=== PATIENT | female | born 1945 | race Caucasian/White ===

== ENCOUNTER 2019-11-07 12:24 | Emergency (ER) | payer MEDICARE, OTHER, SELFPAY ==
[2019-11-07 12:31] VITALS: BP 128/73; PULSE 65; RESP 18; TEMP 36.4; O2SAT 98
--- NOTE | 2019-11-07 12:35 | PC.NURSE ---
Addendum entered by Courtney Martinez R.N. 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 Original Note: Fell backwards playing pickle ball. Landed on buttocks, fell onto wrist and hit head. Denies headache, denies c spine tenderness. Pain and swelling noted to left wrist.
--- NOTE | 2019-11-07 12:38 | DI.RAD.S_ITS ---
PROCEDURE: XR WRIST LT MIN 3V INDICATIONS: glf TECHNIQUE: 4 views of the wrist were acquired. COMPARISON: [facility], CT, CT HEAD/BRAIN WO CON, 11/07/2019, 12:39. FINDINGS: Bones: There is a comminuted, impacted, intra-articular fracture of the distal radius, with dorsal angulation of the distal fracture fragments in relation to the radial shaft. There is an accompanying mildly displaced ulnar styloid fracture. No radiocarpal dislocation is seen. Age-appropriate bony degenerative changes are seen. Scaphoid view: No navicular fractures are seen. Soft tissues: No suspicious soft tissue calcifications. IMPRESSION: There is a comminuted, impacted, dorsally angulated fracture of the distal radius, with intra-articular involvement. There is a mildly displaced ulnar styloid fracture also seen. Dictated by: José Sierra M.D. on 11/07/2019 at 11:59 Approved by: José Sierra M.D. on 11/07/2019 at 12:00
--- NOTE | 2019-11-07 12:38 | DI.CT.S_ITS ---
PROCEDURE: CT HEAD/BRAIN WO CON INDICATIONS: hit head on pavement TECHNIQUE: Noncontrast 4.5 mm thick angled axial sections acquired from the foramen magnum to the vertex, with coronal and sagittal reformats. For radiation dose reduction, the following was used: automated exposure control, adjustment of mA and/or kV according to patient size. COMPARISON: [facility], CR, XR WRIST LT MIN 3V, 11/07/2019, 12:29. FINDINGS: Image quality: Streak artifact from metallic earrings can be seen. CSF spaces: Basal cisterns are patent. No extra-axial fluid collections. The ventricles are symmetric in size and shape. Brain: No intracranial bleeds or masses. There is cerebral volume loss for age, with resultant ventricular and sulcal prominence. There are periventricular and deep white matter chronic small vessel ischemic changes. There is intracranial internal carotid artery atherosclerosis. Skull and face: Calvarium and visualized facial bones appear intact, without suspicious lesions. Sinuses: Visualized sinuses and mastoids are clear. IMPRESSION: No acute intracranial hemorrhage is seen. No acute intracranial process is seen. Dictated by: José Sierra M.D. on 11/07/2019 at 11:58 Approved by: José Sierra M.D. on 11/07/2019 at 11:58
--- NOTE | 2019-11-07 12:47 | ED_ITS ---
HPI - Extremity Injury (Upper) <BRANDI Guajardo - Last Filed: 11/07/19 16:18> General Chief Complaint: Extremity Injury, Upper Stated Complaint: Poss sprained wrist Time Seen by Provider: 11/07/19 12:26 Source: patient Mode of arrival: Ambulatory Limitations: no limitations History of Present Illness HPI narrative: The patient is a 74-year-old female nonsmoker who denies pertinent medical history who presents with a chief complaint of left wrist pain. She has left wrist dominant. She states she was playing pickle ball, fell back, landed on her buttocks and then had a FOOSH injury of her left wrist. She states she reached out to try to stop herself from falling. She also states that she fell back and hit her head on the [employer] ball court, which is made of pavement. She denies any neck or back pain. She denies any difficulty breathing. She has taken 800 mg of ibuprofen, applied ice and wrapped with an Sánchez wrap. She presents with a ring on her left ring finger, which was removed during triage. She denies any chest pain shortness of breath or nausea vomiting. Related Data Home Medications Medication Instructions Recorded Confirmed multivitamin 1 tab PO DAILY 11/11/18 11/11/18 Previous Rx's Medication Instructions Recorded hydrocodone-acetaminophen [[place]] 1 tab PO Q4-6H PRN #12 tab 11/07/19 Allergies Allergy/AdvReac Type Severity Reaction Status Date / Time No Known Drug Allergies Allergy Unverified 11/11/18 09:27 Review of Systems <BRANDI Guajardo - Last Filed: 11/07/19 16:18> Review of Systems Narrative: GENERAL: Denies chills, fatigue, malaise, fever, sweats. HEENT: Denies sinus pain, ear pain, sore throat, difficulty swallowing, dizziness. RESPIRATORY: Denies dyspnea, cough, wheezing, hemoptysis, sputum. CARDIOVASCULAR: Denies chest pain, palpitations, orthopnea, edema, GASTROINTESTINAL: Denies nausea, vomiting, abdominal pain, diarrhea, constipation, melena. : Denies dysuria, frequency, incontinence, hematuria, urinary retention. MUSCULOSKELETAL: See HPI SKIN: Denies rash, skin lesions, or other NEUROLOGIC: See HPI PSYCHIATRIC: No concerning psychosocial issues. 12 point review of systems is negative except for those stated above Patient History <BRANDI Guajardo - Last Filed: 11/07/19 16:18> Medical History History of chicken pox (Acute) History of right breast cancer (Acute) Measles (Acute) Mumps (Acute) Osteopenia (Acute) Thyroid nodule (Acute) Surgical History H/O partial thyroidectomy (Acute) Family History Father Heart attack Mother Hypertension Hyperlipidemia Social History marital status: household members: spouse pets and animals: No education level: college occupational status: other travel history: other leisure activities: sports, reading and other seatbelt use: always water heater temp set < 120 deg: Yes working smoke detector in home: Yes fire extinguisher in home: Yes carbon monox detector in home: Yes firearms in home: Yes firearms unloaded and locked: Yes do you feel safe at home: Yes Smoking Status: Never smoker second hand exposure: No alcohol intake: current (wine, cocktail and beer occasionally.) substance use type: does not use during the past year weight has: remained stable well-balanced diet: daily or most days daily servings fruits/ve or more times/day caffeine: Yes (1-2 drinks per day, rare on soda/pop) eating out: 1-3 times/week Type(s) of exercise: walking and other frequency: 3-4 times per week duration: 30-45 minutes/day additional social history: Pickle ball, golf, personal trampoline lymphatic system. Smoking Status: Never smoker alcohol intake frequency: 0-2 drinks per day Substance Use Type: does not use Exam <BRANDI Guajardo - Last Filed: 11/07/19 16:18> Narrative Exam Narrative: GENERAL: Elderly female sitting on stretcher in no acute distress, left wrist in Sánchez wrap. HEAD: Atraumatic. Normocephalic. No temporal or scalp tenderness. EYES: Pupils equal round and reactive. Extraocular motions intact. No scleral icterus. No injection or drainage. ENT: Nose without bleeding, purulent drainage or septal hematoma. Wearing a mask. . Airway patent. NECK: Trachea midline. No JVD or lymphadenopathy. Supple, nontender, no meningeal signs. CARDIOVASCULAR: Regular rate and rhythm RESPIRATORY: Clear to auscultation. Breath sounds equal bilaterally. No wheezes, rales, or rhonchi. No cough. No increased respiratory effort. No accessory muscle use. EXTREMITIES: Pain to palpation left wrist, swelling noted on dorsum with angulation noted. Decreased range of motion all simmons. Positive left radial pulse. Capillary refill less than 2 seconds all fingers left wrist. BACK: Nontender without deformity or crepitance. No flank tenderness. NEURO: AOx3. Interactive. Age appropriate. Clear speech. No gross cranial nerve deficit. SKIN: No rash or erythema on visible skin. Slight swelling noted on dorsum of left wrist. No laceration noted to posterior head. Initial Vital Signs Initial Vital Signs: Vital Signs Temperature 97.6 F 11/07/19 12:31 Pulse Rate 65 11/07/19 12:31 Respiratory Rate 18 11/07/19 12:31 Blood Pressure 128/73 11/07/19 12:31 Pulse Oximetry 98 11/07/19 12:31 <Dewey Yates DO - Last Filed: 11/07/19 17:03> Initial Vital Signs Initial Vital Signs: Vital Signs Temperature 97.6 F 11/07/19 12:31 Pulse Rate 65 11/07/19 12:31 Respiratory Rate 18 11/07/19 12:31 Blood Pressure 128/73 11/07/19 12:31 Pulse Oximetry 98 11/07/19 12:31 Procedures <BRANDI Guajardo - Last Filed: 11/07/19 16:18> Orthopedic Splinting/Casting Injury #1: Side: left Upper Extremity Injury Location: wrist Upper Extremity Immobilizer: sling/shoulder immobilizer, sugar tong splint and Sánchez wrap Post splinting neuro exam: intact Post splinting vascular exam: intact Placed by: Nursing (With provider) <Dewey Yates DO - Last Filed: 11/07/19 17:03> Orthopedic Fracture Reduction Fracture #1: Time Out Performed: Yes Side: left Fracture Reduction Location: radius and ulna Analgesia: procedural sedation Technique: direct manipulation and traction/counter-traction Post Reduction X-rays Demonstrate: acceptable reduction Post-reduction neuro exam: intact Post-reduction vascular exam: intact Splint Applied: Yes Patient Tolerated Procedure: Well Procedural Sedation Consent signed: Yes Time out performed: Yes Indication: fracture/dislocation reduction ASA Class: II Mallampati Airway Classification: Class II Preparation: monitoring tech applied, pulse oximeter, capnometry used, supplemental O2 applied, suction/airway equipment at bedside and IV secured IV Propofol dose (mg): 70 Intraservice time/total sedation time (min): 10 ED Sedation Level: Moderate (Concious) Patient Tolerated Procedure: Well Complications: none Scores <BRANDI Guajardo - Last Filed: 11/07/19 16:18> GCS [place] coma scale eye opening: Spontaneous [place] coma scale verbal response: Orientated [place] coma scale motor response: Obey commands [place] coma scale total score: 15 Course <NIKKI Guajardo - Last Filed: 11/07/19 16:18> Orders Ordered: ED Orders 11/07/19 12:38 CT head/brain wo con Stat XR wrist LT min 3V Stat 11/07/19 13:44 XR wrist LT 2V Stat Discontinued Medications Sodium Chloride (Normal Saline 0.9%) 1,000 mls @ 1,000 mls/hr IV BOLUS ONE Stop: 11/07/19 14:10 Last Infusion: 11/07/19 14:27 Dose: 1,000 mls/hr Documented by: Admin: 11/07/19 13:52 Dose: 1,000 mls/hr Documented by: CLAUDIA Ondansetron HCl (Zofran) 4 mg IV NOW ONE Stop: 11/07/19 13:12 Last Admin: 11/07/19 13:51 Dose: 4 mg Documented by: CLAUDIA Propofol (Diprivan) 70 mg 1 mg/kg (70 mg) IV NOW ONE Stop: 11/07/19 13:12 Last Admin: 11/07/19 13:51 Dose: 70 mg Documented by: CLAUDIA Vital Signs Vital signs: Vital Signs - 8 hr 11/07/19 12:31 11/07/19 13:39 11/07/19 13:45 Temperature 97.6 F Pulse Rate 65 65 67 Respiratory Rate 18 12 10 L Blood Pressure 128/73 144/70 H Blood Pressure [Right Arm] 159/74 H Pulse Oximetry 98 100 90 L 11/07/19 14:01 11/07/19 14:02 11/07/19 14:28 Temperature Pulse Rate 74 75 71 Respiratory Rate 18 12 12 Blood Pressure 129/70 135/72 Blood Pressure [Right Arm] Pulse Oximetry 93 99 <Dewey Yates DO - Last Filed: 11/07/19 17:03> Orders Ordered: ED Orders 11/07/19 12:38 CT head/brain wo con Stat XR wrist LT min 3V Stat 11/07/19 13:44 XR wrist LT 2V Stat Discontinued Medications Sodium Chloride (Normal Saline 0.9%) 1,000 mls @ 1,000 mls/hr IV BOLUS ONE Stop: 11/07/19 14:10 Last Infusion: 11/07/19 14:27 Dose: 1,000 mls/hr Documented by: Admin: 11/07/19 13:52 Dose: 1,000 mls/hr Documented by: CLAUIDA Ondansetron HCl (Zofran) 4 mg IV NOW ONE Stop: 11/07/19 13:12 Last Admin: 11/07/19 13:51 Dose: 4 mg Documented by: CLAUDIA Propofol (Diprivan) 70 mg 1 mg/kg (70 mg) IV NOW ONE Stop: 11/07/19 13:12 Last Admin: 11/07/19 13:51 Dose: 70 mg Documented by: CLAUDIA Vital Signs Vital signs: Vital Signs - 8 hr 11/07/19 12:31 11/07/19 13:39 11/07/19 13:45 Temperature 97.6 F Pulse Rate 65 65 67 Respiratory Rate 18 12 10 L Blood Pressure 128/73 144/70 H Blood Pressure [Right Arm] 159/74 H Pulse Oximetry 98 100 90 L 11/07/19 14:01 11/07/19 14:02 11/07/19 14:28 Temperature Pulse Rate 74 75 71 Respiratory Rate 18 12 12 Blood Pressure 129/70 135/72 Blood Pressure [Right Arm] Pulse Oximetry 93 99 MDM - Extremity Injury (Upper) <JUANIS Guajardo-MAURI - Last Filed: 11/07/19 16:18> Differential Diagnosis Differential diagnosis: Likely sprain and strain of wrist, fracture of wrist, Colles' fracture and fracture of hand Lab Data Labs: Point of Care Testing Test Results Not applicable Imaging Data Extremity x-ray #1: Radiologist's Impression: [address] [place] [id number] XRay Report Signed Patient: Dorie JulienraMR#: [id number] : 8Acct:[id number] Age/Sex: 74 / FDate of Service: 11/07/19 Loc: ED Accession Number: [id number] Procedure: XR wrist LT min 3V Ordering Provider: Anni May PROCEDURE: XR WRIST LT MIN 3V INDICATIONS: glf TECHNIQUE: 4 views of the wrist were acquired. COMPARISON: [facility], CT, CT HEAD/BRAIN WO CON, 11/07/2019, 12:39. FINDINGS: Bones: There is a comminuted, impacted, intra-articular fracture of the distal radius, with dorsal angulation of the distal fracture fragments in relation to the radial shaft. There is an accompanying mildly displaced ulnar styloid fracture. No radiocarpal dislocation is seen. Age-appropriate bony degenerative changes are seen. Scaphoid view: No navicular fractures are seen. Soft tissues: No suspicious soft tissue calcifications. IMPRESSION: There is a comminuted, impacted, dorsally angulated fracture of the distal radius, with intra-articular involvement. There is a mildly displaced ulnar styloid fracture also seen. Dictated by: José Sierra M.D. on 11/07/2019 at 11:59 Approved by: José Sierra M.D. on 11/07/2019 at 12:00 CT scan - head: Radiologist's Impression: [address] [place] [id number] XRay Report Signed Patient: Dorie JulienraMR#: [id number] : 8Acct:[id number] Age/Sex: 74 / FDate of Service: 11/07/19 Loc: ED Accession Number: [id number] Procedure: XR wrist LT min 3V Ordering Provider: Anni May PROCEDURE: XR WRIST LT MIN 3V INDICATIONS: glf TECHNIQUE: 4 views of the wrist were acquired. COMPARISON: [facility], CT, CT HEAD/BRAIN WO CON, 11/07/2019, 12:39. FINDINGS: Bones: There is a comminuted, impacted, intra-articular fracture of the distal radius, with dorsal angulation of the distal fracture fragments in relation to the radial shaft. There is an accompanying mildly displaced ulnar styloid fracture. No radiocarpal dislocation is seen. Age-appropriate bony degenerative changes are seen. Scaphoid view: No navicular fractures are seen. Soft tissues: No suspicious soft tissue calcifications. IMPRESSION: There is a comminuted, impacted, dorsally angulated fracture of the distal radius, with intra-articular involvement. There is a mildly displaced ulnar styloid fracture also seen. Dictated by: José Sierra M.D. on 11/07/2019 at 11:59 Approved by: José Sierra M.D. on 11/07/2019 at 12:00 Extremity x-ray #2: Radiologist's Impression: [address] [place] [address] XRay Report Signed Patient: Dorie JulienraMR#: [id number] : 8Acct:[id number] Age/Sex: 74 / FDate of Service: 11/07/19 Loc: ED Accession Number: [id number] Procedure: XR wrist LT 2V Ordering Provider: Dewey Yates D.O. PROCEDURE: XR WRIST LT 2V INDICATIONS: post reduction TECHNIQUE: 2 views of the wrist were acquired. COMPARISON: [facility], , XR WRIST LT MIN 3V, 11/07/2019, 12:29. FINDINGS: Bones: On this post casting view, there is slightly improved alignment of the patient's moderately displaced, comminuted distal radial fracture. There is intra- articular involvement. There is a mildly displaced ulnar styloid fracture seen. The overlying casting material limits evaluation of fine detail. Degenerative changes are seen throughout, which are most prominent involving the 1st carpometacarpal joint. Milder degenerative changes are seen elsewhere. Soft tissues: No suspicious soft tissue calcifications. IMPRESSION: Slightly improved anatomic alignment on this post casting view. Dictated by: José Sierra M.D. on 11/07/2019 at 13:11 Approved by: José Sierra M.D. on 11/07/2019 at 13:11 [facility] Narrative Medical decision making narrative: The patient is a 74-year-old female who presents after ground level fall with a chief complaint of left wrist pain and hitting her head. Given her age of over 67, hitting her head on pavement, head CT was obtained and came back negative for any acute findings. The patient believed that she had a wrist sprain, however her x-ray shows a comminuted angulated fracture. However she is neurovascularly intact. Thus she received sedation and reduction with Dr. Yates. Patient is placed in a sugar-tong, remained neurovascularly intact, x-ray shows slight improvement. I spoke with Dr. Banuelos regarding follow-up. Patient tolerated sedation very well. Patient is to call orthopedics on Friday to help arrange follow-up. Discussed at length coming back to ER for any acute concerns including decreased circulation of fingers. Encouraged rest ice compression elevation, prescription of [place] given. Encouraged follow-up with primary care provider as well. Patient has no questions or concerns upon discharge and states understanding return precautions as well as follow-up care. <Dewey Yates, DO - Last Filed: 11/07/19 17:03> Lab Data Labs: Point of Care Testing Test Results Not applicable Discharge Plan Departure Patient Disposition: Home Clinical Impression: Fall from ground level Fracture of wrist Qualifiers: Encounter type: initial encounter Fracture type: closed Laterality: left Q ualified Code(s): S62.102A - Fracture of unspecified carpal bone, left wrist, initial encounter for closed fracture Discharge Date/Time: 11/07/19 14:51 Instructions: How to Use a Sling, DI for Wrist Fracture, How To Perform RICE (Rest, Ice, Compress, Elevate), How to Take Care of Your Splint, DI for Moderate Sedation Activity Restrictions/Additional Instructions: Thank you for trusting us with your care today. I am sorry that you are injured and wish you a speedy recovery. Unfortunately your wrist is more than sprained. We have improved alignment and placed in a splint. I spoke with Dr. Banuelos from [facility] who would like you to call the clinic on Friday to help arrange follow-up. I also suggest follow-up with primary care provider. Please use rest ice compression elevation. Please place ice on top of the splint. Please come back to the emergency department for any acute concerns such as decreased circulation to your fingers. I have included a handout on how to take care of your splint. Please do not get it wet. I sent a pain medication prescription to [facility]. I have given you a prescription of a narcotic for pain. Be aware that this can be constipating and sedating. I encouraged taking with a stool softener, pushing fluids and fiber. Do not take and drive, operate heavy machinery, etc. Do not combine it with any other sedating substances such as alcohol. The combination of narcotics and alcohol and/or other sedatives can be lethal. Prescriptions: New hydrocodone-acetaminophen [[place]] 5-325 mg tablet 1 tab PO Q4-6H PRN (Reason: pain) Qty: 12 RF: 0 No Action multivitamin Tablet 1 tab PO DAILY RF: 0 Referrals: [facility] [Provider Group] Matilda Hi ARNP [Primary Care Provider] - Jose Banuelos MD [Physician] - <Dewey Yates DO - Last Filed: 11/07/19 17:03> [facility] Att[facility]: I was immediately available in the department for consultation. This docume ntation has been reviewed and I agree with assessment and plan. Supervised by Dewey Yates DO
[2019-11-07 13:39] VITALS: BP 159/74; PULSE 65; RESP 12; O2SAT 100
--- NOTE | 2019-11-07 13:44 | DI.RAD.S_ITS ---
PROCEDURE: XR WRIST LT 2V INDICATIONS: post reduction TECHNIQUE: 2 views of the wrist were acquired. COMPARISON: [facility], CR, XR WRIST LT MIN 3V, 11/07/2019, 12:29. FINDINGS: Bones: On this post casting view, there is slightly improved alignment of the patient's moderately displaced, comminuted distal radial fracture. There is intra-articular involvement. There is a mildly displaced ulnar styloid fracture seen. The overlying casting material limits evaluation of fine detail. Degenerative changes are seen throughout, which are most prominent involving the 1st carpometacarpal joint. Milder degenerative changes are seen elsewhere. Soft tissues: No suspicious soft tissue calcifications. IMPRESSION: Slightly improved anatomic alignment on this post casting view. Dictated by: José Sierra M.D. on 11/07/2019 at 13:11 Approved by: José Sierra M.D. on 11/07/2019 at 13:11
[2019-11-07 13:45] VITALS: BP 144/70; PULSE 67; RESP 10; O2SAT 90
[2019-11-07] MEDS: ONDANSETRON 4 MG/2 ML INJ IV (13:51)
[2019-11-07] MEDS: propofoL 200 MG/20 ML VIAL 70 MG IV (13:51)
[2019-11-07] MEDS: SODIUM CHLORIDE 0.9% 1,000 ML 1000 ML IV (13:52)
[2019-11-07 14:01] VITALS: PULSE 74; RESP 18; O2SAT 97
[2019-11-07 14:02] VITALS: BP 129/70; PULSE 75; RESP 12; O2SAT 93
[2019-11-07 14:28] VITALS: BP 135/72; PULSE 71; RESP 12; O2SAT 99
== END 2019-11-07 14:51 | disposition home or self-care (01) ==
PROVIDERS: Emergency Provider Nurse Practitioner Family; PCP Nurse Practitioner
DX: S62.102A Fracture of unspecified carpal bone, left wrist, initial encounter for closed fracture (principal); S09.90XA Unspecified injury of head, initial encounter; W18.30XA Fall on same level, unspecified, initial encounter
CPT/HCPCS: 25605; 29125; 70450; 73100; 73110; 94770; 96361; 96374; 99152; 99285; J2405; J2704

== ENCOUNTER → 2020-03-16 11:06 | Outpatient (CLI) | payer MEDICARE, OTHER, SELFPAY ==
[2020-03-16] MEDS: COVID-19 VACC #1, MRNA(MOD) 100 MCG/0.5 ML VIAL IM (11:10)
== END ==
PROVIDERS: PCP Nurse Practitioner; Visit Provider Internal Medicine
DX: Z23 Encounter for immunization (principal)
CPT/HCPCS: 0011A; 91301

== ENCOUNTER → 2020-04-11 08:41 | Outpatient (CLI) | payer MEDICARE, OTHER, SELFPAY ==
[2020-04-11] MEDS: COVID-19 VACC #2, MRNA(MOD) 100 MCG/0.5 ML VIAL IM (08:47)
== END ==
PROVIDERS: PCP Nurse Practitioner; Visit Provider Internal Medicine
DX: Z23 Encounter for immunization (principal)
CPT/HCPCS: 0012A; 91301

== ENCOUNTER → 2020-10-13 07:11 | Outpatient (CLI) | payer MEDICARE, OTHER, SELFPAY ==
--- NOTE | 2020-10-13 07:13 | DI.US.S_ITS ---
PROCEDURE: US THYROID INDICATIONS: GOITER; HISTORY RIGHT THYROIDECTOMY TECHNIQUE: Real-time scanning was performed of the thyroid gland, with image documentation. Color Doppler was also utilized. COMPARISON: None. FINDINGS: Right: Removed. No abnormal soft tissue can be seen within the right thyroid bed. Left: Thyroid lobe measures 8.4 x 4.3 x 3.8 cm, and is diffusely irregular. Isthmus: 8 mm thick. Nodule number: 1 Location: Left mid to inferior thyroid Size: 3.6 x 2.4 x 3.5 cm. Composition: Predominantly solid Echogenicity: Isoechoic Shape: wider than tall. Margins: Smooth Echogenic foci: Larger calcifications are seen. Total points: 4 ACR TI-RADS category: 4 IMPRESSION: Diffusely irregular left thyroid lobe, with a 3.6 cm mass seen. This mass meets the published criteria to recommend a biopsy. Prior right hemithyroidectomy. ACR TI-RADS definitions and recommendations: TI-RADS 1 (benign): 0 points. FNA not needed. TI-RADS 2 (not suspicious): 2 points. FNA not needed. TI-RADS 3 (mildly suspicious): 3 points. * FNA if 2.5 cm or larger, follow up if 1.5 cm or larger (at 1, 3, and 5 years). TI-RADS 4 (moderately suspicious): 4-6 points. * FNA if 1.5 cm or larger, follow up if 1 cm or larger (at 1, 2, 3, and 5 years). TI-RADS 5 (highly suspicious): 7 points or more. * FNA if 1 cm or larger, follow up if 0.5 cm or larger (every year for 5 years). Dictated by: José Sierra M.D. on 10/13/2020 at 10:20 Approved by: José Sierra M.D. on 10/13/2020 at 10:23
[2020-10-13 08:22] LABS: Alanine Aminotransferase 23 IU/L (<35); Albumin Globulin Ratio 1.4 (1.0-2.8); Alkaline Phosphatase 51 U/L (38-126); Aspartate Aminotransferase 24 IU/L (14-36); BUN Creatinine Ratio 21.4 (6-22); Bilirubin Total 0.6 mg/dL (0.2-1.3); Blood Urea Nitrogen 21 mg/dL (7-17); Calcium 9.9 mg/dL (8.4-10.2); Carbon Dioxide 28 mmol/L (22-32); Chloride 103 mmol/L (98-107); Cholesterol 218 mg/dL (140-199); Estimated Glomerular Filt Rate 55.6 mL/min (>60); Globulin 2.8 g/dL (1.7-4.1); Glucose 89 mg/dL (80-110); HDL Cholesterol 91 mg/dL (40-60); HEMOLYSIS < 15 (0-50); LDL Cholesterol Calculated 110 mg/dL (<100); Potassium 4.6 mmol/L (3.4-5.1); Sodium 136 mmol/L (137-145); Total Protein 6.8 g/dL (6.3-8.2); Triglycerides 84 mg/dL (35-150)
[2020-10-13 08:39] LABS: Free T4, Direct Thyroxine 1.05 ng/dL (0.78-2.19)
[2020-10-13 08:53] LABS: Thyroid Stimulating Hormone 0.448 uIU/mL (0.47-4.68)
== END ==
PROVIDERS: PCP Nurse Practitioner; Referring Provider Nurse Practitioner; Visit Provider Nurse Practitioner
DX: E89.0 Postprocedural hypothyroidism (principal); E04.1 Nontoxic single thyroid nodule; E07.9 Disorder of thyroid, unspecified; E78.5 Hyperlipidemia, unspecified; R03.0 Elevated blood-pressure reading, without diagnosis of hypertension; Z13.6 Encounter for screening for cardiovascular disorders; Z86.39 Personal history of other endocrine, nutritional and metabolic disease
CPT/HCPCS: 36415; 76536; 80053; 80061; 84439; 84443; 84481

== ENCOUNTER → 2020-11-01 10:09 | Outpatient (CLI) | payer MEDICARE, OTHER, SELFPAY ==
--- NOTE | 2020-11-01 | PATH_ITS ---
Note [facility] Accession Number: [id number] TESTS RESULT FLAG UNITS REF RANGE LAB Clinician Provided Cytology Information No. of containers..02 Previously Prepared Cytology Slide 35 Unknown Storage/container code(s) Source: LEFT THYROID NODULE Clinician ICD10: E07.89 [place] DIAGNOSIS: LEFT THYROID NODULE NEGATIVE FOR MALIGNANT CELLS. BETHESDA CATEGORY II. SPECIMEN CONSISTS OF BENIGN FOLLICULAR CELLS, MACROPHAGES, AND COLLOID. THIS PATTERN IS CONSISTENT WITH A BENIGN FOLLICULAR NODULE. Pathologist ICD10: E04.1 Clinical history: Right: Removed. No abnormal soft tissue can be seen within the right thyroid bed. Left: Thyroid lobe measures 8.4 x 43 x 3.8 cm, and is diffusely irregular. Isthmus: 8 mm thick. IMPRESSION: Diffusely irregular left thyroid lobe, with a 3.6 cm mass seen. This mass meets the published criteria to recommend a biopsy. Signed out by: Radha Fields MD, Pathologist NPI- [id number] Performed by: Diana Stevenson, [place] Compliance Coordinator ([facility]) Gross description: 30 CC, RED, CLEAR RECIEVED: IN CYTOLYT WITH 6 ALCOHOL FIXED AND 6 QUICK STAINED SLIDES ALSO 1 RNA VIAL WAS RECEIVED FOR FURTHER TESTING. /VDU 11/02/2020 0724 Local FLAG LEGEND: L-Low Normal,H-High Normal,LL-Alert Low,HH-Alert High <-Panic Low,>-Panic High,A-Abnormal,AA-Critical Abnormal Performed at: 01 =Z [facility] [address] [place] [address] [address], [place] [address] Jay Gann MD, Performed at: 01 [facility] [address] [place] [address] [address], [place], [place] [id number] MD Jay Gann MD Phone: [phone]
--- NOTE | 2020-11-01 | DI.US.S_ITS ---
PROCEDURE: US FINE NEEDLE ASPIRATION INDICATIONS: Other specified disorders of thyroid TECHNIQUE: The indications, alternatives, benefits, risks, and complications of the procedure were explained to the patient. Written informed consent was obtained and placed in the chart. The thyroid region was examined sonographically and a site was chosen for ultrasound guided percutaneous sampling. The skin was prepared and draped in the usual fashion, and anesthetized with 1% lidocaine infiltrated from the skin down to the thyroid gland. Multiple passes were then performed, with contents emptied into an appropriate pathology specimen container. A bandage was applied to the area of access at completion of the study. COMPARISON: None. FINDINGS: Location(s) of lesion(s) sampled: Left lobe [place]: 22 and 25 gauge hypodermic needles. Number of passes: 6 Medications: 1% lidocaine for local anaesthesia. Complications: None. IMPRESSION: Successful ultrasound-guided thyroid nodule fine needle aspiration, with cytology results pending. Please see chart below for management recommendations based on cytology results. [facility] ReportingRecommendationsNon-diagnostic* Repeat US-guided FNA, with on-site cytology evaluation if possible. * Repeated non-diagnostic nodules without high suspicion US features: close observation vs surgical consult. * Consider surgery if nodule has high suspicion US features, grows >20% in 2 dimensions on followup, or patient has clinical risk factors for malignancy. Benign* If nodule has high suspicion US features: repeat US and FNA within 12 months. * If nodule has low to intermediate suspicion US features: repeat US at 12-24 months. If nodule grows (20% increase in at least 2 dimensions, with minimal increase of 2 mm or >50% change in volume), or development of new suspicious US features, then repeat FNA or continue followup. * If nodule has very low suspicion US features: followup US at >24 months. Atypia of undetermined significance, follicular lesion of undetermined significanceRepeat FNA, molecular testing, followup US, or surgical consult.Follicular neoplasm, suspicious for follicular neoplasmSurgical consult; also consider molecular testing. Suspicious for malignancySurgical consult.MalignantSurgical consult. Dictated by: Todd Abreu M.D. on 11/02/2020 at 9:08 Approved by: Todd Abreu M.D. on 11/02/2020 at 9:09
== END ==
PROVIDERS: PCP Nurse Practitioner; Referring Provider Nurse Practitioner; Visit Provider Nurse Practitioner
DX: E07.89 Other specified disorders of thyroid (principal)
CPT/HCPCS: 10005

== ENCOUNTER → 2022-01-29 11:14 | Outpatient (CLI) | payer MEDICARE, OTHER, SELFPAY ==
--- NOTE | 2022-01-29 11:16 | DI.US.S_ITS ---
PROCEDURE: US THYROID INDICATIONS: follow up thyroid imaging for abn US previously. TECHNIQUE: Real-time scanning was performed of the thyroid gland, with image documentation. COMPARISON: [facility], US, US THYROID, 10/13/2020, 7:29. FINDINGS: Right: Right thyroid lobe is surgically absent. Left: Thyroid lobe measures 9.3 x 4.4 x 4.2 cm, and is heterogeneous in echotexture. This was previously measured at 8.4 x 3.8 x 4.3 cm in size. Isthmus: 4.9 mm thick, previously 8.8 mm in thickness. Nodule number: 1 Location: Midpole left thyroid lobe Size: 3.8 x 3.7 x 2.7 cm, previously 3.6 x 2.4 x 3.5 cm. Composition: Predominantly solid Echogenicity: Isoechoic Shape: Wider than tall Margins: Lobulated Echogenic foci: Macro calcifications are seen. Total points: 4 ACR TI-RADS category: Moderately suspicious Nodule number: 2 Location: Upper pole left thyroid lobe Size: 1.8 x 1.7 x 0.9 cm. New since previous study. Composition: Predominantly solid Echogenicity: Hypoechoic Shape: Wider than tall Margins: Mildly lobulated Echogenic foci: Punctate calcifications are seen. Total points: 6 ACR TI-RADS category: Moderately suspicious IMPRESSION: 1. Previously noted midpole left thyroid lobe moderately suspicious nodule is stable in size and appearance. Please correlate with previous FNA finding. 2. Interval development of a new moderately suspicious nodule in upper pole left thyroid lobe consider fine-needle aspiration for further evaluation. ACR TI-RADS definitions and recommendations: TI-RADS 1 (benign): 0 points. FNA not needed. TI-RADS 2 (not suspicious): 2 points. FNA not needed. TI-RADS 3 (mildly suspicious): 3 points. * FNA if 2.5 cm or larger, follow up if 1.5 cm or larger (at 1, 3, and 5 years). TI-RADS 4 (moderately suspicious): 4-6 points. * FNA if 1.5 cm or larger, follow up if 1 cm or larger (at 1, 2, 3, and 5 years). TI-RADS 5 (highly suspicious): 7 points or more. * FNA if 1 cm or larger, follow up if 0.5 cm or larger (every year for 5 years). Dictated by: Saeid Browning M.D. on 01/29/2022 at 17:05 Approved by: Saeid Browning M.D. on 01/29/2022 at 17:08
== END ==
PROVIDERS: PCP Nurse Practitioner; Referring Provider Nurse Practitioner; Visit Provider Nurse Practitioner
DX: E04.2 Nontoxic multinodular goiter
CPT/HCPCS: 76536

== ENCOUNTER → 2022-09-10 07:17 | Outpatient (CLI) | payer MEDICARE, OTHER, SELFPAY ==
[2022-09-10 08:00] LABS: Alanine Aminotransferase 26 IU/L (<35); Albumin 3.8 g/dL (3.5-5.0); Albumin Globulin Ratio 1.3 (1.0-2.8); Alkaline Phosphatase 51 U/L (38-126); Aspartate Aminotransferase 26 IU/L (14-36); BUN Creatinine Ratio 26.7 (6-22); Bilirubin Total 0.4 mg/dL (0.2-1.3); Blood Urea Nitrogen 20 mg/dL (7-17); Calcium 9.2 mg/dL (8.4-10.2); Carbon Dioxide 30 mmol/L (22-32); Chloride 104 mmol/L (98-107); Cholesterol 233 mg/dL (140-199); Estimated Glomerular Filt Rate > 60 mL/min (>60); Globulin 2.9 g/dL (1.7-4.1); Glucose 93 mg/dL (80-110); HDL Cholesterol 92 mg/dL (40-60); HEMOLYSIS < 15 (0-50); LDL Cholesterol Calculated 130 mg/dL (<100); Potassium 4.1 mmol/L (3.4-5.1); Sodium 138 mmol/L (137-145); Total Protein 6.7 g/dL (6.3-8.2); Triglycerides 54 mg/dL (35-150)
[2022-09-10 08:12] LABS: Free T3, Triiodothyronine Free 3.69 pg/mL (2.77-5.27); Free T4, Direct Thyroxine 1.03 ng/dL (0.78-2.19)
[2022-09-10 08:26] LABS: Thyroid Stimulating Hormone 0.634 uIU/mL (0.47-4.68)
[2022-09-10 08:46] LABS: Hep C Virus Ab w/Reflex Quant NEGATIVE s/c (NEGATIVE)
== END ==
PROVIDERS: PCP Nurse Practitioner; Referring Provider Nurse Practitioner; Visit Provider Nurse Practitioner
DX: I10 Essential (primary) hypertension (principal); E07.89 Other specified disorders of thyroid; M85.80 Other specified disorders of bone density and structure, unspecified site; R03.0 Elevated blood-pressure reading, without diagnosis of hypertension; Z86.39 Personal history of other endocrine, nutritional and metabolic disease; Z11.59 Encounter for screening for other viral diseases
CPT/HCPCS: 36415; 80053; 80061; 84439; 84443; 84481; 86803

== ENCOUNTER 2023-01-23 08:19 | Day surgery (SDC) | payer MEDICARE, OTHER, SELFPAY ==
[2023-01-23] MEDS: LACTATED RINGERS 1,000 ML 42 ML IV (08:29)
[2023-01-23 08:35] VITALS: BMI 22.9
[2023-01-23 08:41] VITALS: BP 149/81; PULSE 73; RESP 20; TEMP 36.4; O2SAT 100
--- NOTE | 2023-01-23 09:13 | PM.HP.1 ---
History of Present Illness History of Present Illness Date Patient Seen: 01/23/23 Time Patient Seen: 09:13 Chief complaint: Screening Colonoscopy w/poss bx Narrative: Teri is a 77-year-old woman who is here for colonoscopy. She is had to in the past and she thinks maybe one polyp was removed last time. She has had breast cancer surgery of her right breast. No known family history of colon cancer. [facility] Medical History (Updated 01/23/23 @ 09:34 by Lanre Galvan MD) Elevated blood pressure reading in office with diagnosis of hypertension History of hyperlipidemia Tinea unguium Diarrhea Mumps Measles History of chicken pox Osteopenia Thyroid nodule History of right breast cancer Surgical History H/O partial thyroidectomy Family History Father Heart attack Mother Hypertension Hyperlipidemia Social History (Reviewed 11/07/19 @ 14:37 by Anni May [facility]) marital status: household members: spouse pets and animals: No education level: college occupational status: other travel history: other leisure activities: sports, reading and other seatbelt use: always water heater temp set < 120 deg: Yes working smoke detector in home: Yes fire extinguisher in home: Yes carbon monox detector in home: Yes firearms in home: Yes firearms unloaded and locked: Yes do you feel safe at home: Yes Smoking Status: Never smoker second hand exposure: No alcohol intake: current substance use type: does not use during the past year weight has: remained stable well-balanced diet: daily or most days daily servings fruits/ve or more times/day caffeine: Yes (1-2 drinks per day, rare on soda/pop) eating out: 1-3 times/week Type(s) of exercise: walking and other frequency: 3-4 times per week duration: 30-45 minutes/day additional social history: Pickle ball, golf, personal [employer] lymphatic system. Meds Home Medications and Allergies Home Medications Medication Instructions Recorded Confirmed Type multivitamin 1 tab PO DAILY 11/11/18 01/23/23 History probiotic 1 cap PO .QD 10/10/20 01/23/23 History Allergies Allergy/AdvReac Type Severity Reaction Status Date / Time No Known Drug Allergies Allergy Verified 01/23/23 08:34 Exam Vital Signs (past 8 hours): - 01/23/23 08:41 Temperature 97.5 F L Pulse Rate 73 Respiratory Rate 20 Blood Pressure 149/81 H Pulse Oximetry 100 Oxygen Delivery Method Room Air Oxygen Delivery Method Room Air Const General: healthy appearing Assessment & Plan Assessment and plan (1) Colon cancer screening: Status: Acute Plan We reviewed the risks and benefits of colonoscopy for colon cancer screening and she would like to proceed.
[2023-01-23 10:00] VITALS: BP 107/58; PULSE 75; RESP 16; TEMP 36.3; O2SAT 98
--- NOTE | 2023-01-23 10:02 | P.OP.COLON_ITS ---
Operative Date/Time/Diagnoses Date of procedure: 01/23/23 Time of procedure: 10:02 Pre-op diagnosis: Colon cancer screening Post-op diagnosis: same Procedure & Clinicians Study performed: Colonoscopy Same procedure as scheduled: Yes Surgeon: Lanre Galvan Procedure Notes Procedure in detail: Surgeon: Lanre Galvan MD Anesthesia: Risa Landaverde EDUCATIONAL SPECIALIST Procedure: The patient was brought to the endoscopy suite, placed in left lateral decubitus position. The patient was connected to monitoring devices. A time-out was performed. Sedation was administered. Once the patient was adequately sedated, a digital rectal exam was performed and was normal. The scope was then inserted and advanced to the cecum where the appendiceal orifice was identified and photographed. The scope was then slowly withdrawn over greater than 6 minutes. The mucosa was thoroughly inspected. No abnormalities were seen. The scope was retroflexed in the rectum. [id number] internal hemorrhoids were noted. The scope was straightened and removed. The patient was awakened and brought to recovery. Scope withdrawal time: 7 minutes Sedation time: 16 minutes EBL: 0 Findings: Internal hemorrhoids Post-procedure Disposition: PACU
[2023-01-23 10:05] VITALS: BP 107/52; PULSE 69; RESP 18; O2SAT 98
[2023-01-23 10:10] VITALS: BP 110/58; PULSE 58; RESP 16; O2SAT 98
[2023-01-23 10:34] VITALS: BP 112/70; PULSE 66; RESP 16; TEMP 36.2; O2SAT 98
== END 2023-01-23 10:36 | disposition home or self-care (01) ==
PROVIDERS: PCP Nurse Practitioner; Referring Provider Surgery; Visit Provider Surgery
PROC: 0DJD8ZZ Inspection of Lower Intestinal Tract, Via Natural or Artificial Opening Endoscopic (ICD-10-PCS; CPT 45378; principal; 2023-01-23 09:15)
DX: Z12.11 Encounter for screening for malignant neoplasm of colon (principal); K64.8 Other hemorrhoids
CPT/HCPCS: G0121

== ENCOUNTER → 2023-10-09 12:12 | Outpatient (CLI) | payer MEDICARE, OTHER, SELFPAY ==
--- NOTE | 2023-10-09 12:14 | DI.US.S_ITS ---
PROCEDURE: US THYROID INDICATIONS: Monitoring Thyroid Nodules TECHNIQUE: Real-time scanning was performed of the thyroid gland, with image documentation. COMPARISON: [facility], US, US THYROID, 01/29/2022, 11:28. FINDINGS: Thyroid: Right lobe is surgically absent. Left lobe measures 5.8 x 3.8 x 3.5 cm. Isthmus measures 3 mm. Nodule number: 1 Location: Left mid, previous FNA Size: 3.9 x 3.7 x 3.3 cm compared to 3.8 x 3.2 x 2.7 cm. Composition: Solid Echogenicity: Hypoechoic Shape: wider than tall. Margins: Smooth Echogenic foci: Macrocalcification Total points: 5 ACR TI-RADS category: For Nodule number: 2 Location: Left superior Size: 1.7 x 1.8 x 1.1 cm compared to 1.8 x 1.7 x 0.9 cm. Composition: Solid Echogenicity: Hypoechoic Shape: wider than tall. Margins: Smooth Echogenic foci: Punctate Total points: 7 ACR TI-RADS category: 5 Nodule number: 3 Location: Left superior Size: 1.1 x 1.3 x 0.9 cm. Composition: Solid Echogenicity: Hypoechoic Shape: wider than tall. Margins: Smooth Echogenic foci: None Total points: 4 ACR TI-RADS category: 4 IMPRESSION: Lesion 3 is new, considered category 4. Secondary to size, interval annual imaging follow-up is recommended as below. Lesion 1 is similar in size as well as previous FNA. Lesion 2 is similar in size. Although it meets criteria for FNA, given stability, continued imaging follow-up may be obtained. ACR TI-RADS definitions and recommendations: TI-RADS 1 (benign): 0 points. FNA not needed. TI-RADS 2 (not suspicious): 2 points. FNA not needed. TI-RADS 3 (mildly suspicious): 3 points. * FNA if 2.5 cm or larger, follow up if 1.5 cm or larger (at 1, 3, and 5 years). TI-RADS 4 (moderately suspicious): 4-6 points. * FNA if 1.5 cm or larger, follow up if 1 cm or larger (at 1, 2, 3, and 5 years). TI-RADS 5 (highly suspicious): 7 points or more. * FNA if 1 cm or larger, follow up if 0.5 cm or larger (every year for 5 years). Dictated by: Tori Torres M.D. on 10/09/2023 at 16:11 Approved by: Tori Torres M.D. on 10/09/2023 at 16:17
== END ==
PROVIDERS: PCP Nurse Practitioner; Referring Provider Nurse Practitioner; Visit Provider Nurse Practitioner
DX: E07.89 Other specified disorders of thyroid (principal); E04.2 Nontoxic multinodular goiter
CPT/HCPCS: 76536